=== PATIENT | male | born 1955 | race Caucasian/White ===

== ENCOUNTER 2021-10-06 00:51 | Day surgery (SDC) | payer BC, SELFPAY ==
[2021-09-27 09:29] VITALS: BMI 28.1
--- NOTE | 2021-09-27 09:46 | PC.NURSE ---
Report to the Outpatient Waiting Room, entrance under the green pavilion located off [facility], at 1130 on date 09-30-21. OR Time: 1330. - You and your visitor will be asked a series of questions to screen for COVID 19 for your protection. - A mask is required within the hospital. Preoperative COVID Testing Requirements: No COVID Test needed if: (proof is required; if not received patient will have Rapid Test prior to entry) - Patient has received COVID Vaccine at least 14 days prior to procedure date or - Patient has positive COVID test result within last 90 days of surgery date. COVID Test needed if above criteria is not met If not COVID vaccinated a COVID test must be conducted within 72 hours of surgery and patient is asked to isolate self from time of testing until procedure. You will go to the [facility] for your COVID testing. The [facility] is located at the corner of [address] [facility]. You will only be called if COVID results are positive and your surgeon may reschedule your elective surgery date. Patients may have clear liquids (water, carbonated beverages, clear teas, apple juice) until 3 hours prior to surgery with a maximum of 20 ounces. 1030 - No food from midnight until time of surgery - Infants may have breast milk until 4 hours before surgery, formula 6 hours prior to surgery. - Children will be allowed to drink immediately following surgery. If applicable, please bring a bottle or sippy cup to assist with drinking. Juice, water, soda, and popsicles are readily available. For infants on formula, please bring formula the day of surgery. Pacifiers are allowed. Take the following medications with a SIP of water the morning of surgery: None Medications to discontinue per physician: N/A Date to take last dose: N/A Please no make-up, nail romanian, hairspray, perfume, deodorant, or body powder the day of surgery. No jewelry (including any body piercings) or valuables the day of surgery, leave them at home. Please take a shower or bath the night before, or the morning of, surgery with an antibacterial soap Hibiclens . Wear comfortable, loose fitting clothing. Children are encouraged to wear pajamas. - Jewelry must be removed prior to entering the operating room. Rings and piercings that are not removed may be cut off. - The hospital will not accept responsibility for valuables. - Please leave all valuables, including medications, at home the day of surgery. If you are going home after surgery, a licensed driver license reviewing officer must drive you home. - NO public transportation without another adult. - We recommend that an adult stay with you for 24 hours following discharge. - We also recommend that you do not drive, make important decision, drink alcoholic beverages, or take any drugs that were not prescribed by your health care provider for at least 24 hours after your discharge time. For Pediatric surgeries, we recommend two adults accompany the child home (only one inside the building at this time). One visitor will be allowed to accompany the patient into the hospital. Patients visitor will be instructed to remain with patient at all times or leave the building. We will allow the visitor to come back to the postoperative area when patient is ready. Follow any additional instructions given to you from your surgeon. Telephone instructions given to Jarod Tyson and asked if any additional questions and then verbalized understanding. Patient advised to call surgeon office or pre surgery nurse liaison [phone] if any additional questions.
--- NOTE | 2021-09-29 14:53 | PC.NURSE ---
Report to the Outpatient Waiting Room, entrance under the green pavilion located off [facility], at time __1100 on date _10/06/21 . OR Time: ___1300 . - You and your visitor will be asked a series of questions to screen for COVID 19 for your protection. - A mask is required within the hospital. Preoperative COVID Testing Requirements: No COVID Test needed if: (proof is required; if not received patient will have Rapid Test prior to entry) - Patient has received COVID Vaccine at least 14 days prior to procedure date or - Patient has positive COVID test result within last 90 days of surgery date. COVID Test needed if above criteria is not met If not COVID vaccinated a COVID test must be conducted within 72 hours of surgery and patient is asked to isolate self from time of testing until procedure. You will go to the [facility] for your COVID testing. The [facility] is located at the corner of [address] [facility]. You will only be called if COVID results are positive and your surgeon may reschedule your elective surgery date. Patients may have clear liquids (water, carbonated beverages, clear teas, apple juice) until 3 hours prior to surgery with a maximum of 20 ounces. - No food from midnight until time of surgery - Infants may have breast milk until 4 hours before surgery, infant formula 6 hours prior to surgery. - Children will be allowed to drink immediately following surgery. If applicable, please bring a bottle or sippy cup to assist with drinking. Juice, water, soda, and popsicles are readily available. For infants on formula, please bring formula the day of surgery. Pacifiers are allowed. Take the following medications with a SIP of water the morning of surgery: ___NONE Medications to discontinue per physician ____NONE Date to take last dose Please no make-up, nail syrian, hairspray, perfume, deodorant, or body powder the day of surgery. No jewelry (including any body piercings) or valuables the day of surgery, leave them at home. Please take a shower or bath the night before, or the morning of, surgery with an antibacterial soap. Wear comfortable, loose fitting clothing. Children are encouraged to wear pajamas. - Jewelry must be removed prior to entering the operating room. Rings and piercings that are not removed may be cut off. - The hospital will not accept responsibility for valuables. - Please leave all valuables, including medications, at home the day of surgery. HIBICLENS SHOWER MORNING OF SURGERY If you are going home after surgery, a licensed pole truck driver must drive you home. - NO public transportation without another adult. - We recommend that an adult stay with you for 24 hours following discharge. - We also recommend that you do not drive, make important decision, drink alcoholic beverages, or take any drugs that were not prescribed by your health care provider for at least 24 hours after your discharge time. For Pediatric surgeries, we recommend two adults accompany the child home (only one inside the building at this time). One visitor will be allowed to accompany the patient into the hospital. Patients visitor will be instructed to remain with patient at all times or leave the building. We will allow the visitor to come back to the postoperative area when patient is ready. Follow any additional instructions given to you from your surgeon. Telephone instructions given to __PATIENT and asked if any additional questions and then verbalized understanding. Patient advised to call surgeon office or pre surgery nurse liaison [phone] if any additional questions.
[2021-10-06] MEDS: ACETAMINOPHEN 500 MG TABLET 1000 MG PO (11:00)
[2021-10-06] MEDS: KETOROLAC 15 MG/ML VIAL (*BKC) IV PUSH (11:00)
[2021-10-06 11:04] VITALS: BP 145/77; PULSE 60; RESP 14; TEMP 36.3; O2SAT 100; BMI 26.9
--- NOTE | 2021-10-06 11:28 | WPDHPUPDATE1 ---
History and Physical Update Update Date/Time: 10/06/21 11:29 History and Physical has been reviewed, including an updated exam of the patient. There are NO changes in the patient's condition. Risks, benefits, and alternatives of an open umbilical hernia repair with mesh have been discussed and questions answered. Patient agrees to proceed with procedure.
--- NOTE | 2021-10-06 11:45 | WPDANESEPPF ---
Anes - Initial Pre Proc Eval Procedure: Operation Date: 10/06/21 12:00 Proposed Procedures p Umbilical Hernia Repair with Mesh - aPn Og MD Date/Time: 10/06/21 11:45 Surgeon: Pan Og MD Pre Op Diagnosis: Umb Hernia Patient Data Age: 65 Gender: M Height: 1.73 m Weight: 80.2 kg Last Vital Signs Temp 97.4 F L 10/06/21 11:04 Pulse 60 10/06/21 11:04 Resp 14 10/06/21 11:04 BP 145/77 H 10/06/21 11:04 Pulse Ox 100 10/06/21 11:04 Allergies Allergy/AdvReac Type Severity Reaction Status Date / Time ciprofloxacin Allergy Mild Rash Verified 09/29/21 14:52 Home Medications Medication Instructions Recorded Confirmed Type pantoprazole 40 mg tablet,delayed 40 mg PO QAM 08/23/21 09/29/21 History release rosuvastatin 10 mg PO HS 09/27/21 09/29/21 History Patient hx anesthesia problems: none Family hx anesthesia problems: none Results Review: All pre-operative results and documents have been reviewed as part of the pre-operative evaluation. [facility] Surgical History Surgical History (Updated 09/07/21 @ 10:19 by Maria Del Rosario Chu) History of appendectomy Hx of hernia repair Inguinal hernia repair - ~ 2011 Family History Family History Other Carcinoma of colon Diabetes mellitus Malignant neoplasm of prostate Social History Social History Smoking status: Never smoker Second hand tobacco smoke exposure: No Alcohol intake: never Substance use: never Substance use type: does not use Living arrangements: alone Additional occupation/education comments: [employer] Spiritual care concerns: No Anes - Eval Final PreProcedure Day of Procedure 10/06/21 11:45 Patient weight: normal Heart: regular rate and rhythm Lungs: clear to auscultation Airway: Mallampati scale class II Neurological: alert and oriented Last oral intake: >/= 8 hours ASA classification: II Emergent: no Anesthetic plan: proceed Anesthesia type and monitoring: general GIVS and standard monitoring Results Review: All pre-operative results and documents have been reviewed as part of the pre-operative evaluation. Informed Consent: The patient's anesthetic plan and its attendant risks and benefits were discussed with the patient/family/POA. Questions were solicited and answers provided to the satisfaction of the patient/family/POA.
[2021-10-06] MEDS: LACTATED RINGERS 1,000 ML 30 ML IV CONT (12:03)
[2021-10-06] MEDS: ceFAZolin 2 GM/D5W 50 ML 2 GM/50 ML BAG IVPB (12:19)
[2021-10-06 13:15] VITALS: BP 104/69; PULSE 66; RESP 16; O2SAT 94
--- NOTE | 2021-10-06 13:28 | W.PM.PROC2 ---
Procedure Note - Detailed Date of Procedure 10/06/21 Pre-op Diagnosis Umb Hernia, Incarcerated Post-op Diagnosis Same Procedure Performed Open umbilical hernia repair with mesh Surgeon Pan Og MD Bull Fiddle Player Frankie RAMIREZ. OR First Asst. Anesthesia General Indications Bulging and pain at the umbilicus. Findings The patient had pre peritoneal fat incarcerated within a small 1.7 cm diameter fascial defect at the level of the umbilicus. Description of Procedure Procedure note: The patient was brought to operating room and placed in supine position on the operative table and after induction of adequate general IV sedation anesthesia by Shadi anesthesia we carefully prepped and draped the central portion of the abdomen. A curvilinear incision was outlined in the folds of the infraumbilical crease transversely. Local anesthetic using 0.25% Marcaine with epinephrine was infiltrated into the skin along the lines of the outlined incision. A fifteen blade knife was used to make a curvilinear incision and carried down through subcutaneous tissues. We then raised the umbilicus itself as the skin flap superiorly and carefully avoiding puncture of the skin I elevated this up to the level of the upper fascial border of the hernia defect. Following this incision was made directly down and slightly inferiorly to expose the inferior border of the fascial defect at the umbilicus. Following this the umbilical hernia sac was grasped with 2 hemostats, elevated, and carefully entered under direct vision. I then used the Metzenbaum scissors to slit down 1 side of it and we used serial to application of the Bovie cautery and scissors to completely excise the small dome-like umbilical hernia sac including some preperitoneal fat around it and in it and then passed these off the field in 2 pieces. the peritoneal line to sac was fairly small and there was actually no omentum caught on the inside of the sac. I believe 0 was herniating through the fascial defect was hypertrophied preperitoneal fat. This was excised. Following this we put placed the mesh. I measured the defect which was about 1.7 cm incise. I therefore selected a 4.[address] circular mesh hernia patch which is 2 sided. It was 1st appropriately hydrated. Then using the provided positioning devices we carefully folded this and placed it into the abdomen with the moistened Collagen soft coated side toward the intra-abdominal contents and the mesh toward the anterior abdominal wall. This was sutured through the provided mesh straps in 4 corners using # 0 Vicryl on the two lateral sides and then above and below. This seemed to hold the mesh in a good central position. It aslo seemed to lay flat up against the underlying tissues jsut deep to the fascia. Following this I carefully placed more local anesthetic using 0.25% Marcaine with epinephrine throughout. Following this interrupted sutures of 3-0 Vicryl were used to approximate the subcutaneous tissues including one to carefully tack the skin of the underside of the umbilicus down to the underlying fascia. The subcutaneous tissues were nicely approximated and following this and a running subcuticular closure of 4- 0 Monocryl was used to close the skin. Surgical glue was applied. This was allowed to dry. An abdominal binder was applied as the patient was being moved from the operating table. Sponge needle instrument counts were correct at the end the procedure He was taken recovery in good condition. Estimated blood loss [address] mesh, 4.3 cm round mesh Estimated Blood Loss 5 Drains No Packing No Pathology Yes ( umbilical hernia sac and preperitoneal fat) Complications No immediate complications Condition Stable Disposition Same day
[2021-10-06 13:45] VITALS: BP 94/57; PULSE 50; RESP 14; O2SAT 95
[2021-10-06 14:15] VITALS: BP 119/72; PULSE 50; RESP 14
== END 2021-10-06 14:33 | disposition home or self-care (01) ==
PROVIDERS: PCP Internal Medicine; Visit Provider Surgery
PROC: (CPT 49587; principal; 2021-10-06 12:00)
DX: K42.0 Umbilical hernia with obstruction, without gangrene (principal)
CPT/HCPCS: 49587; 88302; A9270; C1781; J0690; J1885; J2001; J2250; J2704; J3010; J7120

== ENCOUNTER 2023-12-25 12:48 | Outpatient (CLI) | payer MEDICARE, OTHER, SELFPAY ==
--- NOTE | ~2023-12-25 | US_ITS ---
EXAMINATION: US carotid duplex BI DATE: 12/25/2023 13:33 INDICATION: Left-sided neck tightness TECHNIQUE: Grayscale, color Doppler, and pulsed Doppler images of the cervical carotid arteries were obtained. The degree of vessel stenosis is placed in one of the following categories: normal, <50%, 5 0-69%, >=70% but less than near-occlusion, near-occlusion, or total occlusion. Note that percent sten osis relative to normal distal artery lumen diameter is indirectly measured from velocity measurement s as described by Jay Jay, et al. Radiology 2003; [id number]. COMPARISON: None. FINDINGS: RIGHT: The right common carotid artery (CCA) peak systolic velocity (PSV) is 89 cm/s. The right internal car otid artery (ICA) PSV is 78 cm/s. The right ICA end-diastolic velocity (EDV) is 22 cm/s. The right IC A/CCA PSV ratio is 0.9. Grayscale and color Doppler images yield an estimate of <50% diameter reducti on from plaque in the ICA. The external carotid artery (ECA) PSV is 106 cm/s. There is antegrade flow in the right vertebral artery. LEFT: The left CCA PSV is 90 cm/s. The left ICA PSV is 65 cm/s. The left ICA EDV is 22 cm/s. The left ICA/C CA PSV ratio is 0.7. Grayscale and color Doppler images yield an estimate of <50% diameter reduction from plaque in the ICA. The ECA PSV is 85 cm/s. There is antegrade flow in the left vertebral artery. IMPRESSION: 1. <50% stenosis in the right internal carotid artery. 2. <50% stenosis in the left internal carotid artery. Reviewed, dictated and finalized at location A.
== END 2023-12-25 12:49 | disposition home or self-care (01) ==
LOC: ANHIMG 12:53
PROVIDERS: PCP Nurse Practitioner Family; Visit Provider Nurse Practitioner Family
DX: I65.23 Occlusion and stenosis of bilateral carotid arteries (principal); R09.89 Other specified symptoms and signs involving the circulatory and respiratory systems
CPT/HCPCS: 93880